=== PATIENT | female | born 1985 | race Caucasian/White ===

== ENCOUNTER 2017-07-25 16:54 | Emergency (ER) | payer OTHER ==
[2017-07-25] MEDS ORDERED: Sodium Chloride 0.9% 10 ML Syringe FLUSH PRN (17:10)
[2017-07-25] MEDS ORDERED: Sodium Chloride 0.9% 1,000 ML IV ONE (17:10)
[2017-07-25] MEDS ORDERED: Sodium Chloride 0.9% 2.5 ML Syringe FLUSH PRN (17:10)
[2017-07-25 17:47] LABS: CHLORIDE,CL 107 mmol/L (98-110); SODIUM,NA 136 mmol/L (136-146)
--- NOTE | 2017-07-25 18:19 | EDM.PDOC ---
Addendum entered and electronically signed by Irina Mobley MD 07/25/17 21: 19: Please also note that labor and delivery did come down and briefly evaluate the patient for heart tones and conditions and has cleared the patient. Original Note: <Irina Mobley - Last Filed: 07/25/17 21:10> ED HPI GENERAL MEDICAL PROBLEM - General Chief Complaint: Respiratory Problem Stated Complaint: SHORTNESS OF BREATH/ Time Seen by Provider: 07/25/17 16:57 - History of Present Illness INITIAL COMMENTS - FREE TEXT/NARRATIVE: This is Dr. Mobley dictating an addendum note as I assumed care of this case at 7 PM. Case was endorsed to me as above and vital signs were reviewed which revealed no sign of to The hypoxia or tachycardia. This is the patient's fourth . She states to me that she's been having the shortness of breath more acutely and she was concerned. Labs were reviewed which had been completed at the time of endorsement and the CTA was going to be performed. The test results are now back and there is no evidence of any pulmonary abnormality including PE. These results were discussed with the patient and at bedside. This case was also discussed at 2109 with the doctor mononitrotoluene operator for [facility], Dr. Vega; she will relay the information to Dr. Funez. I will advise the patient to continue to monitor symptoms and reasons to return to the ED and to keep follow-up and in close contact with her provider for any change or evolution of the symptoms. Impression: Dyspnea in third trimester etiology unclear stable - Related Data Allergies Allergy/AdvReac Type Severity Reaction Status Date / Time No Known Allergies Allergy Verified 07/25/17 17:04 Home Meds: Home Meds Vit No.130/Iron/FA [ Tablet] 1 tab PO DAILY 03/11/14 [History] ED ROS GENERAL - Review of Systems Review Of Systems: ROS reveals no pertinent complaints other than HPI. Course - Vital Signs Last Recorded V/S: Last Vital Signs Temp 98.9 F 07/25/17 21:40 Pulse 73 07/25/17 21:40 Resp 15 07/25/17 21:40 BP 115/69 07/25/17 21:40 Pulse Ox 15 L 07/25/17 21:40 - Orders/Labs/Meds Orders: Active Orders 24 hr Category Date Time Status CTA Chest W WO Contrast [Ang Chest] [CT] Stat Exams 07/25/17 17:35 Taken Saline Lock Insert [OM.PC] Stat Oth 07/25/17 17:09 Ordered Labs: Laboratory Tests 07/25/17 07/25/17 07/25/17 Range/Units 17:19 17:20 17:20 WBC 13.19 H (4.0-11.0) K/uL RBC 3.85 L (4.30-5.90) M/uL Hgb 11.6 L (12.0-16.0) g/dL Hct 35.6 L (36.0-46.0) % MCV 92.5 (80.0-98.0) fL MCH 30.1 (27.0-32.0) pg MCHC 32.6 (31.0-37.0) g/dL RDW Std Deviation 42.7 (28.0-62.0) fl RDW Coeff of Isaias 13 (11.0-15.0) % Plt Count 289 (150-400) K/uL MPV 11.60 (7.40-12.00) fL Add Manual Diff YES Neutrophils % (Manual) 53 (48.0-80.0) % Band Neutrophils % 6 % Lymphocytes % (Manual) 28 (16.0-40.0) % Monocytes % (Manual) 11 (0.0-15.0) % Eosinophils % (Manual) 2 (0.0-7.0) % Nucleated RBC % 0.0 /100WBC Absolute Seg Neuts 7.0 H (1.4-5.7) Band Neutrophils # 0.8 Lymphocytes # (Manual) 3.7 H (0.6-2.4) Monocytes # (Manual) 1.5 H (0.0-0.8) Eosinophils # (Manual) 0.3 (0.0-0.7) Nucleated RBCs # 0 K/uL Sodium 136 (136-146) mmol/L Potassium 3.7 (3.5-5.1) mmol/L Chloride 107 (98-110) mmol/L Carbon Dioxide 22 (21-31) mmol/L BUN 10 (6.0-23.0) mg/dL Creatinine 0.7 (0.6-1.5) mg/dL Est Cr Clr Drug Dosing TNP Estimated GFR (MDRD) > 60.0 ml/min Glucose 86 (60-110) mg/dL Calcium 9.2 (8.8-10.8) mg/dL Total Bilirubin 0.2 (0.1-1.5) mg/dL AST 13 (5-40) IU/L ALT 11 (8-54) IU/L Alkaline Phosphatase 85 (40-150) Total Protein 6.9 (6.0-8.0) g/dL Albumin 3.4 L (3.5-5.0) g/dL Globulin 3.5 (2.0-3.5) g/dL Albumin/Globulin Ratio 1.0 L (1.3-2.8) Urine Color YELLOW Urine Appearance CLEAR Urine pH 7.5 (5.0-8.0) Ur Specific [place] 1.015 (1.001-1.035) Urine Protein NEGATIVE (NEGATIVE) mg/dL Urine Glucose (UA) NEGATIVE (NEGATIVE) mg/dL Urine Ketones NEGATIVE (NEGATIVE) mg/dL Urine Occult Blood TRACE-LYSED (NEGATIVE) Urine Nitrite NEGATIVE (NEGATIVE) Urine Bilirubin NEGATIVE (NEGATIVE) Urine Urobilinogen 0.2 (<2.0) EU/dL Ur Leukocyte Esterase NEGATIVE (NEGATIVE) Urine RBC 0-1 (0-2/HPF) Urine WBC 0-2 (0-5/HPF) Ur Epithelial Cells MODERATE (NONE-FEW) Urine Bacteria FEW (NEGATIVE) Meds: Medications Discontinued Medications Generic Name Dose Route Start Last Admin Trade Name Freq PRN Reason Stop Dose Admin Sodium Chloride 1,000 mls @ 999 mls/hr 07/25/17 17:10 07/25/17 17:25 Normal Saline IV 07/25/17 18:10 999 mls/hr .Bolus ONE Administration Sodium Chloride 10 ml 07/25/17 17:10 Saline Flush FLUSH ASDIRECTED PRN Keep Vein Open Sodium Chloride 2.5 ml 07/25/17 17:10 Saline Flush FLUSH ASDIRECTED PRN Keep Vein Open Departure - Departure Time of Disposition: 21:18 Disposition: Home, Self-Care 01 Condition: Good Clinical Impression: Third trimester Dyspnea Qualifiers: Dyspnea type: unspecified Qualified Code(s): R06.00 - Dyspnea, unspecified - Discharge Information Instructions: Shortness of Breath, Evbi-lz-Ateg, Third Trimester of , [id number] Referrals: Adum,Diane, MD [Primary Care Provider] - Forms: ED Department Discharge Additional Instructions: The following information is given to patients seen in the emergency department who are being discharged to home. This information is to outline your options for follow-up care. We provide all patients seen in our emergency department with a follow-up referral. The need for follow-up, as well as the timing and circumstances, are variable depending upon the specifics of your emergency department visit. If you don't have a primary care physician on staff, we will provide you with a referral. We always advise you to contact your personal physician following an emergency department visit to inform them of the circumstance of the visit and for follow-up with them and/or the need for any referrals to a consulting specialist. The emergency department will also refer you to a specialist when appropriate. This referral assures that you have the opportunity for followup care with a specialist. All of these measure are taken in an effort to provide you with optimal care, which includes your followup. Under all circumstances we always encourage you to contact your private physician who remains a resource for coordinating your care. When calling for followup care, please make the office aware that this follow-up is from your recent emergency room visit. If for any reason you are refused follow-up, please contact the [facility] emergency department at and ask to speak to the emergency department charge nurse. [address] [id number] Please continue to monitor your symptoms and contact your provider at the clinic for follow-up. Please return to ER as needed and as discussed. - My Orders Last 24 Hours: My Active Orders 07/25/17 17:09 Saline Lock Insert [OM.PC] Stat 07/25/17 17:35 CTA Chest W WO Contrast [Ang Chest] [CT] Stat - Assessment/Plan Last 24 Hours: My Active Orders 07/25/17 17:09 Saline Lock Insert [OM.PC] Stat 07/25/17 17:35 CTA Chest W WO Contrast [Ang Chest] [CT] Stat <Shaneka Rodríguez - Last Filed: 07/26/17 07:04> ED HPI GENERAL MEDICAL PROBLEM - General Source of Information: Reports: Patient History Limitations: Reports: No Limitations - History of Present Illness INITIAL COMMENTS - FREE TEXT/NARRATIVE: History of present illness: []Patient is [address] Funez at [facility] complaining of a sudden onset of shortness of breath this afternoon while at rest. Patient has been feeling lack of energy and was diagnosed with a vitamin B deficiency and has received her first vitamin B shot but it has not helped. She has not had any recent illnesses she denies any chest pain, cough, fevers, chills, or cold symptoms. Patient also denies any leg pain or leg swelling. Patient states she feels the baby moving and is not have any abdominal pain, vaginal bleeding or discharge. Review of systems: As per history of present illness and below otherwise all systems reviewed and negative. Past medical history: As per history of present illness and as reviewed below otherwise noncontributory. Surgical history: As per history of present illness and as reviewed below otherwise noncontributory. Social history: No reported history of drug or alcohol abuse. Family history: As per history of present illness and as reviewed below otherwise noncontributory. Physical exam: General: Well developed, well nourished in NAD HEENT: Atraumatic, normocephalic, pupils reactive, negative for conjunctival pallor or scleral icterus, mucous membranes moist, throat clear, neck supple, nontender, trachea midline. No edema Lungs: Clear to auscultation, breath sounds equal bilaterally, no accessory muscle use, chest nontender. Heart: S1S2, regular, negative for clicks, rubs, or JVD. No peripheral edema Abdomen: Soft, consistent with several month OB abdomen. Negative for masses or hepatosplenomegaly. Negative for costovertebral tenderness. Pelvis: Stable nontender. Genitourinary: Deferred. Rectal: Deferred. Extremities: Atraumatic, negative for cords or calf pain. Neurovascular unremarkable. Neuro: Awake, alert, oriented. Cranial nerves II through XII unremarkable. Cerebellum unremarkable. Motor and sensory unremarkable throughout. Exam nonfocal. Diagnostics: []Labs and T and she'll to rule out a PE-results pending, Dr. Mobley Therapeutics: []IV hydrated Impression: []Shortness of breath Plan: []Disposition per Dr. Mobley Definitive disposition and diagnosis as appropriate pending reevaluation and review of above. 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: Musculoskeletal History: Reports: None Neurological History: Reports: None Psychiatric History: Reports: None Endocrine/Metabolic History: Reports: None Hematologic History: Reports: None Immunologic History: Reports: None Oncologic (Cancer) History: Reports: None Dermatologic History: Reports: None - Infectious Disease History Infectious Disease History: Reports: Chicken Pox - Past Surgical History Respiratory Surgical History: Reports: None GI Surgical History: Reports: None Female Surgical History: Reports: None Endocrine Surgical History: Reports: None Neurological Surgical History: Reports: None Musculoskeletal Surgical History: Reports: None Oncologic Surgical History: Reports: None Dermatological Surgical History: Reports: None Social & Family History - Family History Family Medical History: Noncontributory Cardiac: Reports: Hypertension OBGYN: Reports: Other (See Below) Other OBGYN Family History: ovarian cancer Oncologic: Reports: Breast, Ovarian - Tobacco Use Smoking Status *Q: Never Smoker Second Hand Smoke Exposure: No - Caffeine Use Caffeine Use: Reports: Coffee - Recreational Drug Use Recreational Drug Use: No ED ROS GENERAL - Review of Systems Review Of Systems: See Below (See history of present illness) ED EXAM, GENERAL - Physical Exam Exam: See Below (See history of present illness)
[2017-07-25 21:44] VITALS: BP 115/69
--- NOTE | 2017-07-26 13:07 | CT ---
EXAM DATE: 07/25/17 PATIENT'S AGE: 32 Patient: LUZMARIA RESENDEZ Facility: [place], [place] Site . Site : 1985 Study: CT Chest Angio [id number]/5/2017 8:13:48 PM Ordering Physician: Marcos Munroe Final Report: INDICATION: Sudden onset shortness of breath. TECHNIQUE: CT chest pulmonary PE protocol acquired with 50 cc Isovue 370 IV contrast. COMPARISON: None FINDINGS: Cardiovascular structures: Normal vascular enhancement of the pulmonary arteries , no sign of pulmonary embolism. Heart size is normal. No sign of aneurysm or dissection in the thoracic aorta. Mediastinum and susie: No mass or adenopathy. Lungs: Clear. Pleura and pericardium: No effusions. Chest wall and axilla: No mass or adenopathy. Upper abdomen: Unremarkable. Bones: No significant findings. IMPRESSION: Unremarkable chest CT. Specifically, no pulmonary embolism or pneumonia. Please note that all CT scans at this facility use dose modulation, iterative reconstruction, and/or weight-based dosing when appropriate to reduce radiation dose to as low as reasonably achievable. Dictated by Elizabeth Osborn MD @ Jul 25 2017 8:51PM (Electronic Signature) Report Signed by Proxy. DUSTIN
== END 2017-07-25 21:40 | disposition home or self-care (01) ==
LOC: MW.ED 16:54
DX: O99.89 Other specified diseases and conditions complicating pregnancy, childbirth and the puerperium (principal); R06.02 Shortness of breath
CPT/HCPCS: 36415; 71275; 80053; 81001; 85025; 96360; 99285; J7040

== ENCOUNTER 2017-09-21 07:07 | Emergency (ER) | payer OTHER | END 2017-09-21 07:30 | disposition left against medical advice (07) | LOC: MW.ED 07:07 | DX: Z53.21 Procedure and treatment not carried out due to patient leaving prior to being seen by health care provider (principal) ==

== ENCOUNTER 2017-09-21 07:14 | Inpatient (IN) | payer OTHER ==
[2017-09-21] MEDS ORDERED: Ondansetron 4 MG Tab.DIS PO PRN (07:48)
[2017-09-21] MEDS: Lactated Ringers 1,000 ML IV SCH ×3 (08:05→15:10)
[2017-09-21] MEDS ORDERED: Ondansetron 4 MG/2 ML SDV IVPUSH ONE (08:13)
[2017-09-21 09:01] LABS: CHLORIDE,CL 107 mmol/L (98-110); SODIUM,NA 137 mmol/L (136-146)
[2017-09-21] MEDS ORDERED: Misoprostol 200 MCG Tab PO PRN (14:22)
[2017-09-21] MEDS ORDERED: Butorphanol 1 MG/ML SDV IVPUSH PRN (14:22)
[2017-09-21] MEDS ORDERED: Sodium Chloride 0.9% 10 ML Syringe FLUSH PRN (14:22)
[2017-09-21] MEDS ORDERED: Nalbuphine 10 MG/1 ML Vial IVPUSH PRN (14:22)
[2017-09-21] MEDS ORDERED: Methylergonovine 0.2 MG/1 ML Amp IM PRN (14:22)
[2017-09-21] MEDS ORDERED: Carboprost Tromethamine 250 MCG/1 ML Amp IM PRN (14:22)
[2017-09-21] MEDS ORDERED: Lidocaine 1% 50 ML MDV INJECT PRN (14:22)
[2017-09-21] MEDS ORDERED: Sodium Chloride 0.9% 2.5 ML Syringe FLUSH PRN (14:22)
[2017-09-21] MEDS ORDERED: Water For Irrigation,Sterile 1,000 ML Container IRR PRN (14:22)
[2017-09-21] MEDS ORDERED: Oxytocin/0.9 % Sodium Chloride 30 UNIT/500 ML BAG IV SCH (14:30)
[2017-09-21] MEDS ORDERED: Lactated Ringers 1,000 ML IV SCH (14:30)
[2017-09-21] MEDS ORDERED: fentaNYL 100 MCG/2 ML SDV ONE (14:52)
[2017-09-21] MEDS ORDERED: Ropivacaine 0.2% 2 MG/ML 20 ML SDV ONE (14:53)
--- NOTE | 2017-09-21 15:18 | PCM.PREANE ---
Preanesthetic Assessment - Anesthesia/Transfusion/Family Hx Anesthesia History: Prior Anesthesia Without Reaction Family History of Anesthesia Reaction: No Transfusion History: No Prior Transfusion(s) - Review of Systems Other: Reports: None - Physical Assessment Height: 5 ft 3 in Weight: 72.575 kg ASA Class: 2 Mental Status: Alert & Oriented x3 Airway Class: Mallampati = 1 Dentition: Reports: Normal Dentition ROM/Head Extension: Full - Lab Values: Laboratory Last Values WBC 12.54 K/uL (4.0-11.0) H 09/21/17 08:15 RBC 4.33 M/uL (4.30-5.90) 09/21/17 08:15 Hgb 12.1 g/dL (12.0-16.0) 09/21/17 08:15 Hct 38.7 % (36.0-46.0) 09/21/17 08:15 MCV 89.4 fL (80.0-98.0) 09/21/17 08:15 MCH 27.9 pg (27.0-32.0) 09/21/17 08:15 MCHC 31.3 g/dL (31.0-37.0) 09/21/17 08:15 RDW Std Deviation 46.4 fl (28.0-62.0) 09/21/17 08:15 RDW Coeff of Isaias 14 % (11.0-15.0) 09/21/17 08:15 Plt Count 209 K/uL (150-400) 09/21/17 08:15 MPV 12.80 fL (7.40-12.00) H 09/21/17 08:15 Nucleated RBC % 0.0 /100WBC 09/21/17 08:15 Nucleated RBCs # 0 K/uL 09/21/17 08:15 Sodium 137 mmol/L (136-146) 09/21/17 08:15 Potassium 4.1 mmol/L (3.5-5.1) 09/21/17 08:15 Chloride 107 mmol/L (98-110) 09/21/17 08:15 Carbon Dioxide 18 mmol/L (21-31) L 09/21/17 08:15 BUN 14 mg/dL (6.0-23.0) 09/21/17 08:15 Creatinine 0.7 mg/dL (0.6-1.5) 09/21/17 08:15 Est Cr Clr Drug Dosing 94.56 mL/min 09/21/17 08:15 Estimated GFR (MDRD) > 60.0 ml/min 09/21/17 08:15 Glucose 92 mg/dL (60-110) 09/21/17 08:15 Calcium 8.9 mg/dL (8.8-10.8) 09/21/17 08:15 Total Bilirubin 0.4 mg/dL (0.1-1.5) 09/21/17 08:15 AST 16 IU/L (5-40) 09/21/17 08:15 ALT 12 IU/L (8-54) 09/21/17 08:15 Alkaline Phosphatase 192 (40-150) H 09/21/17 08:15 Total Protein 6.9 g/dL (6.0-8.0) 09/21/17 08:15 Albumin 3.5 g/dL (3.5-5.0) 09/21/17 08:15 Globulin 3.4 g/dL (2.0-3.5) 09/21/17 08:15 Albumin/Globulin Ratio 1.0 (1.3-2.8) L 09/21/17 08:15 Urine Color YELLOW 09/21/17 10:05 Urine Appearance CLEAR 09/21/17 10:05 Urine pH 6.0 (5.0-8.0) 09/21/17 10:05 Ur Specific [place] 1.025 (1.001-1.035) 09/21/17 10:05 Urine Protein TRACE mg/dL (NEGATIVE) 09/21/17 10:05 Urine Glucose (UA) NEGATIVE mg/dL (NEGATIVE) 09/21/17 10:05 Urine Ketones 40 mg/dL (NEGATIVE) H 09/21/17 10:05 Urine Occult Blood TRACE-LYSED (NEGATIVE) 09/21/17 10:05 Urine Nitrite NEGATIVE (NEGATIVE) 09/21/17 10:05 Urine Bilirubin NEGATIVE (NEGATIVE) 09/21/17 10:05 Urine Urobilinogen 0.2 EU/dL (<2.0) 09/21/17 10:05 Ur Leukocyte Esterase NEGATIVE (NEGATIVE) 09/21/17 10:05 - Allergies Allergies/Adverse Reactions: Allergies Allergy/AdvReac Type Severity Reaction Status Date / Time No Known Allergies Allergy Verified 07/25/17 17:04 - Blood Blood Available: Yes Product(s) Available: PRBC - Acknowledgements Anesthesia Type Planned: Epidural Pt an Appropriate Candidate for the Planned Anesthesia: Yes Alternatives and Risks of Anesthesia Discussed w Pt/Guardian: Yes Pt/Guardian Understands and Agrees with Anesthesia Plan: Yes PreAnesthesia Questionnaire Respiratory History: Reports: None Gastrointestinal History: Reports: None Genitourinary History: Reports: None 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: Musculoskeletal History: Reports: None Neurological History: Reports: None Psychiatric History: Reports: None Endocrine/Metabolic History: Reports: None Hematologic History: Reports: None Immunologic History: Reports: None Oncologic (Cancer) History: Reports: None Dermatologic History: Reports: None - Infectious Disease History Infectious Disease History: Reports: Chicken Pox - Past Surgical History Respiratory Surgical History: Reports: None GI Surgical History: Reports: None Female Surgical History: Reports: None Endocrine Surgical History: Reports: None Neurological Surgical History: Reports: None Musculoskeletal Surgical History: Reports: None Oncologic Surgical History: Reports: None Dermatological Surgical History: Reports: None - SUBSTANCE USE Smoking Status *Q: Never Smoker Tobacco Use Within Last Twelve Months: No Second Hand Smoke Exposure: No Recreational Drug Use History: No - HOME MEDS Home Medications: Home Meds Vit No.130/Iron/FA [ Tablet] 1 tab PO DAILY 03/11/14 [History] - CURRENT (IN HOUSE) MEDS Current Meds: Current Medications Butorphanol Tartrate (Stadol) 1 mg IVPUSH ASDIRECTED PRN PRN Reason: Pain Carboprost Tromethamine (Hemabate Ds) 250 mcg IM ASDIRECTED PRN PRN Reason: Post Hemorrhage Lactated Ringer's (Ringers, Lactated) 1,000 mls @ 150 mls/hr IV .BOLUS AURELIANO Stop: 09/22/17 08:01 Last Admin: 09/21/17 15:10 Dose: 500 mls/hr Lactated Ringer's (Ringers, Lactated) 1,000 mls @ 150 mls/hr IV ASDIRECTED AURELIANO Oxytocin/Sodium Chloride (Oxytocin 30 Unit/500 Ml-Ns) 30 unit in 500 mls @ 999 mls/hr IV TITRATE AURELIANO Lidocaine HCl (Xylocaine 1%) 50 ml INJECT .ONCE PRN PRN Reason: Laceration repair Methylergonovine Maleate (Methergine) 0.2 mg IM ASDIRECTED PRN PRN Reason: Post Hemorrhage Misoprostol (Cytotec) 200 mcg PO .ONCE PRN PRN Reason: Post Hemorrhage Nalbuphine HCl (Nubain) 10 mg IVPUSH ASDIRECTED PRN PRN Reason: Pain (severe 7-10) Sodium Chloride (Saline Flush) 10 ml FLUSH ASDIRECTED PRN PRN Reason: Keep Vein Open Sodium Chloride (Saline Flush) 2.5 ml FLUSH ASDIRECTED PRN PRN Reason: Keep Vein Open Sterile Water (Sterile Water For Irrigation) 1,000 ml IRR ASDIRECTED PRN PRN Reason: delivery Discontinued Medications Fentanyl (Sublimaze) Confirm Administered Dose 400 mcg .ROUTE .STK-MED ONE Stop: 09/21/17 14:53 Ondansetron HCl (Zofran) 4 mg IVPUSH ONETIME ONE Stop: 09/21/17 08:14 Last Admin: 09/21/17 08:25 Dose: 4 mg Ropivacaine (Naropin 0.2%) Confirm Administered Dose 20 ml .ROUTE .STK-MED ONE Stop: 09/21/17 14:54
[2017-09-21] MEDS ORDERED: Bisacodyl 10 MG Supp RECTAL PRN (16:04)
[2017-09-21] MEDS ORDERED: Lanolin 100% Cream 7 GM Tube TOP PRN (16:04)
[2017-09-21] MEDS ORDERED: Witch Hazel Medicated Pads 40/Jar TOP PRN (16:04)
[2017-09-21] MEDS ORDERED: Ibuprofen 400 MG Tab PO PRN (16:04)
[2017-09-21] MEDS ORDERED: Acetaminophen 500 MG Tab PO PRN ×2 (16:04)
[2017-09-21] MEDS ORDERED: oxyCODONE 5 MG Tab PO PRN (16:04)
[2017-09-21] MEDS ORDERED: Docusate Sodium 100 MG Cap PO PRN (16:04)
[2017-09-21] MEDS ORDERED: Benzocaine/Menthol 20%-0.5% Spray 78 GM Cannister TOP PRN (16:04)
--- NOTE | 2017-09-21 22:11 | OR ---
SURGEON: Diane Funez MD DATE OF PROCEDURE: 09/21/2017 PREOPERATIVE DIAGNOSES: 1. Intrauterine at 39 weeks and 2 days. 2. Spontaneous labor. POSTOPERATIVE DIAGNOSES: 1. Intrauterine at 39 weeks and 2 days. 2. Spontaneous labor. 3. Delivered. PROCEDURES: 1. Spontaneous vaginal delivery. 2. Repair of perineal laceration. ANESTHESIA: Epidural. ESTIMATED BLOOD LOSS: 200 mL. COMPLICATIONS: None. DISPOSITION: Mother and baby stable in Labor and Delivery room, bonding. FINDINGS: Female , weight pending, Apgars 9 and 9 at one and five minutes respectively. Grossly normal placenta with 3-vessel cord. Second degree perineal laceration. BRIEF HISTORY: Diane is a 32-year-old, G4, P3, who was admitted at 39 weeks and 2 days at the early hours of this morning with body aches, nausea, and vomiting- reported that she had vomited over 15 times since the previous night. She also reported that her kid has had fever over the last 24 hours and seemed to be coming down with flu-like symptoms. She was evaluated and ruled out for influenza infection. She was hydrated and her nausea with vomiting resolved with a dose of Zofran. She was initially rosio very irregularly on admission and did not report feeling those contractions, but while she was on admission, she started complaining of increase in intensity of her contractions, she was examined and initially was found to be 3 cm dilated, but then continued to make cervical change. She progressed spontaneously to 6 cm and was asked for epidural. At that stage, artificial rupture of membranes was performed with clear amniotic fluid noted and she received epidural for pain management. Within an hour of artificial rupture of membranes, she became fully dilated and commenced active pushing. Her care was otherwise uncomplicated. GBS status was negative. She continued to have a category 1 tracing. She pushed well and over the next 3 contractions, she brought the baby's head down to a +4 station and was set up for delivery in modified dorsal lithotomy position. DESCRIPTION OF PROCEDURE: She had a spontaneous vaginal delivery of a live female in left occipital posterior position, no nuchal cords noted, clear amniotic fluid at delivery. Anterior and posterior shoulders and the rest of the baby was delivered without difficulty. The baby was vigorous and cried spontaneously at . The baby was then delivered onto the maternal abdomen with the nursery nurse attending to her. Delayed cord clamping was performed. The cord was subsequently cut by the father of the baby. With delivery of the infant, oxytocin was commenced for active management of third stage of labor. Cord blood and gas samples were obtained. The placenta was delivered by controlled cord traction, appeared to be complete and intact. Examination of the perineum revealed a midline second- degree perineal laceration. This was repaired with 2-0 Vicryl suture in the routine fashion in 3 layers with subcuticular stitches used to appose the skin. Uterine massage was performed. The uterus was found to be well contracted below the umbilicus. The patient tolerated the procedure well. Sponge, instrument, and needle counts were correct at the end of the delivery. ADUMVIV / LIZETHL /[id number] MTDD
[2017-09-21] MEDS: Ibuprofen 800 MG Tab PO PRN (23:09)
--- NOTE | 2017-09-22 08:58 | PCM.PNPP ---
- General Info Date of Service: 09/22/17 Functional Status: Reports: Pain Controlled, Tolerating Diet, Ambulating, Urinating - Review of Systems General: Denies: Fever, Weakness, Fatigue, Malaise, Chills HEENT: Denies: Headaches Pulmonary: Denies: Shortness of Breath, Pleuritic Chest Pain, Cough Cardiovascular: Denies: Chest Pain, Palpitations, Dyspnea on Exertion Gastrointestinal: Denies: Abdominal Pain Genitourinary: Denies: Dysuria, Incontinence, Retention Psychiatric: Denies: Confusion, Depression, Mood Lability, Anxiety - General Info Date of Service: 09/22/17 - Patient Data Vital Signs - Most Recent: Last Vital Signs Temp 36.7 C 09/22/17 04:00 Pulse 67 09/22/17 04:00 Resp 15 09/22/17 04:00 BP 99/57 L 09/22/17 04:00 Pulse Ox 97 09/22/17 04:00 Weight - Most Recent: 160 lb Lab Results - Last 24 Hours: Laboratory Results - last 24 hr 09/21/17 09/21/17 09/21/17 Range/Units 08:15 10:05 14:41 Hgb (12.0-16.0) g/dL Hct (36.0-46.0) % Cord ABG pH (7.18-7.38) Cord ABG Base Excess (-10--2) Cord VBG pH (7.25-7.45) Cord VBG Base Excess (-10--2) Sodium 137 (136-146) mmol/L Potassium 4.1 (3.5-5.1) mmol/L Chloride 107 (98-110) mmol/L Carbon Dioxide 18 L (21-31) mmol/L BUN 14 (6.0-23.0) mg/dL Creatinine 0.7 (0.6-1.5) mg/dL Est Cr Clr Drug Dosing 94.56 mL/min Estimated GFR (MDRD) > 60.0 ml/min Glucose 92 (60-110) mg/dL Calcium 8.9 (8.8-10.8) mg/dL Total Bilirubin 0.4 (0.1-1.5) mg/dL AST 16 (5-40) IU/L ALT 12 (8-54) IU/L Alkaline Phosphatase 192 H (40-150) Total Protein 6.9 (6.0-8.0) g/dL Albumin 3.5 (3.5-5.0) g/dL Globulin 3.4 (2.0-3.5) g/dL Albumin/Globulin Ratio 1.0 L (1.3-2.8) Urine Color YELLOW Urine Appearance CLEAR Urine pH 6.0 (5.0-8.0) Ur Specific Salyer 1.025 (1.001-1.035) Urine Protein TRACE (NEGATIVE) mg/dL Urine Glucose (UA) NEGATIVE (NEGATIVE) mg/dL Urine Ketones 40 H (NEGATIVE) mg/dL Urine Occult Blood TRACE-LYSED (NEGATIVE) Urine Nitrite NEGATIVE (NEGATIVE) Urine Bilirubin NEGATIVE (NEGATIVE) Urine Urobilinogen 0.2 (<2.0) EU/dL Ur Leukocyte Esterase NEGATIVE (NEGATIVE) Blood Type AB POSITIVE Antibody Screen NEGATIVE 09/21/17 09/22/17 Range/Units 15:42 05:03 Hgb 8.7 L (12.0-16.0) g/dL Hct 28.1 L (36.0-46.0) % Cord ABG pH 7.223 (7.18-7.38) Cord ABG Base Excess -7 (-10--2) Cord VBG pH 7.272 (7.25-7.45) Cord VBG Base Excess -7 (-10--2) Sodium (136-146) mmol/L Potassium (3.5-5.1) mmol/L Chloride (98-110) mmol/L Carbon Dioxide (21-31) mmol/L BUN (6.0-23.0) mg/dL Creatinine (0.6-1.5) mg/dL Est Cr Clr Drug Dosing mL/min Estimated GFR (MDRD) ml/min Glucose (60-110) mg/dL Calcium (8.8-10.8) mg/dL Total Bilirubin (0.1-1.5) mg/dL AST (5-40) IU/L ALT (8-54) IU/L Alkaline Phosphatase (40-150) Total Protein (6.0-8.0) g/dL Albumin (3.5-5.0) g/dL Globulin (2.0-3.5) g/dL Albumin/Globulin Ratio (1.3-2.8) Urine Color Urine Appearance Urine pH (5.0-8.0) Ur Specific Salyer (1.001-1.035) Urine Protein (NEGATIVE) mg/dL Urine Glucose (UA) (NEGATIVE) mg/dL Urine Ketones (NEGATIVE) mg/dL Urine Occult Blood (NEGATIVE) Urine Nitrite (NEGATIVE) Urine Bilirubin (NEGATIVE) Urine Urobilinogen (<2.0) EU/dL Ur Leukocyte Esterase (NEGATIVE) Blood Type Antibody Screen Micro Results - Last 24 Hours: Microbiology 09/21/17 07:45 Influenza Type A Antigen Screen - Final Nasopharyngeal Swab NEGATIVE INFLUENZA A VIRUS AG Influenza Type B Antigen Screen - Final NEGATIVE INFLUENZA B VIRUS AG Med Orders - Current: Current Medications Acetaminophen (Tylenol Extra Strength) 500 mg PO Q4H PRN PRN Reason: Pain Acetaminophen (Tylenol Extra Strength) 1,000 mg PO Q4H PRN PRN Reason: Pain Last Admin: 09/22/17 03:02 Dose: 1,000 mg Benzocaine/Menthol (Dermoplast Pain Relief 20%-0.5% Ethel) 78 gm TOP ASDIRECTED PRN PRN Reason: Perineal Comfort Measure Last Admin: 09/21/17 18:21 Dose: 78 gram Bisacodyl (Dulcolax) 10 mg RECTAL .ONCE PRN PRN Reason: Constipation Docusate Sodium (Colace) 100 mg PO BID PRN PRN Reason: Constipation Emollient Ointment (Lansinoh Hpa) 0 gm TOP ASDIRECTED PRN PRN Reason: Sore Nipples Ibuprofen (Motrin) 400 mg PO Q4H PRN PRN Reason: Pain Ibuprofen (Motrin) 800 mg PO Q6H PRN PRN Reason: Pain Last Admin: 09/21/17 23:09 Dose: 800 mg Oxycodone HCl (Oxycodone) 5 mg PO Q2H PRN PRN Reason: Pain Witch Marina (Tucks) 1 pad TOP ASDIRECTED PRN PRN Reason: comfort care Last Admin: 09/21/17 18:20 Dose: 1 pad Discontinued Medications Butorphanol Tartrate (Stadol) 1 mg IVPUSH ASDIRECTED PRN PRN Reason: Pain Carboprost Tromethamine (Hemabate Ds) 250 mcg IM ASDIRECTED PRN PRN Reason: Post Hemorrhage Fentanyl (Sublimaze) Confirm Administered Dose 400 mcg .ROUTE .STK-MED ONE Stop: 09/21/17 14:53 Last Admin: 09/22/17 04:44 Dose: Not Given Lactated Ringer's (Ringers, Lactated) 1,000 mls @ 150 mls/hr IV .BOLUS [facility] Stop: 09/22/17 08:01 Last Admin: 09/21/17 15:10 Dose: 500 mls/hr Lactated Ringer's (Ringers, Lactated) 1,000 mls @ 150 mls/hr IV ASDIRECTED [facility] Oxytocin/Sodium Chloride (Oxytocin 30 Unit/500 Ml-Ns) 30 unit in 500 mls @ 999 mls/hr IV TITRATE [facility] Lidocaine HCl (Xylocaine 1%) 50 ml INJECT .ONCE PRN PRN Reason: Laceration repair Methylergonovine Maleate (Methergine) 0.2 mg IM ASDIRECTED PRN PRN Reason: Post Hemorrhage Misoprostol (Cytotec) 200 mcg PO .ONCE PRN PRN Reason: Post Hemorrhage Nalbuphine HCl (Nubain) 10 mg IVPUSH ASDIRECTED PRN PRN Reason: Pain (severe 7-10) Ondansetron HCl (Zofran) 4 mg IVPUSH ONETIME ONE Stop: 09/21/17 08:14 Last Admin: 09/21/17 08:25 Dose: 4 mg Ropivacaine (Naropin 0.2%) Confirm Administered Dose 20 ml .ROUTE .K-MED ONE Stop: 09/21/17 14:54 Last Admin: 09/22/17 04:45 Dose: Not Given Sodium Chloride (Saline Flush) 10 ml FLUSH ASDIRECTED PRN PRN Reason: Keep Vein Open Sodium Chloride (Saline Flush) 2.5 ml FLUSH ASDIRECTED PRN PRN Reason: Keep Vein Open Sterile Water (Sterile Water For Irrigation) 1,000 ml IRR ASDIRECTED PRN PRN Reason: delivery - Interaction Disposition, : in Room with Family Infant Feeding: Bottle Fed Support Person: - Recovery Exam Fundal Tone: Firm Fundal Level: 1 Fingerbreadths Below Umbilicus Fundal Placement: Midline Lochia Amount: Scant Lochia Color: Rubra/Red Perineum Description: Other (see below) Other Perinuem Description: 2nd degree laceration, repaired Episiotomy/Laceration: Approximated Bladder Status: Voiding Urinary Elimination: Voided - Exam General: Alert, Oriented Neck: Supple Lungs: Clear to Auscultation, Normal Respiratory Effort Cardiovascular: Regular Rate, Regular Rhythm GI/Abdominal Exam: Normal Bowel Sounds Extremities: Non-Tender, No Pedal Edema Skin: Warm Psy/Mental Status: Alert, Normal Affect, Normal Mood - Problem List & Annotations (1) Vaginal delivery SNOMED Code(s): 095550449 Code(s): O80 - ENCOUNTER FOR FULL-TERM UNCOMPLICATED DELIVERY Status: Acute Current Visit: Yes (2) Anemia SNOMED Code(s): 461989454 Code(s): D64.9 - ANEMIA, UNSPECIFIED Status: Acute Current Visit: Yes Qualifiers: Anemia type: other cause Other causes of anemia: other cause, not classified Qualified Code(s): D64.89 - Other specified anemias - Problem List Review Problem List Initiated/Reviewed/Updated: Yes - My Orders Last 24 Hours: My Active Orders 09/21/17 14:22 Heart Tones [RC] CONTINUOUS Non Stress Test [RC] PER UNIT ROUTINE May Shower [RC] ASDIRECTED Notify Provider [RC] PRN Up ad Ciara [RC] ASDIRECTED Vaginal Exam [RC] PRN Vital Signs [RC] PER UNIT ROUTINE 09/21/17 16:04 Patient Status [ADT] Routine May Shower [RC] ASDIRECTED Up ad Ciara [RC] ASDIRECTED Vital Signs [RC] PER UNIT ROUTINE Acetaminophen [Tylenol Extra Strength] 1,000 mg PO Q4H PRN Acetaminophen [Tylenol Extra Strength] 500 mg PO Q4H PRN Benzocaine/Menthol [Dermoplast Pain Relief 20%-0.5% Ethel] 78 gm TOP ASDIRECTED PRN Bisacodyl [Dulcolax] 10 mg RECTAL .ONCE PRN Docusate Sodium [Colace] 100 mg PO BID PRN Ibuprofen [Motrin] 400 mg PO Q4H PRN Ibuprofen [Motrin] 800 mg PO Q6H PRN Lanolin [Lansinoh HPA] See Dose Instructions TOP ASDIRECTED PRN Witch Marina [Tucks] 1 pad TOP ASDIRECTED PRN oxyCODONE 5 mg PO Q2H PRN Assess Lochia [WOMSER] Per Unit Routine Assess Uterine Involution [WOMSER] Per Unit Routine Peripheral IV Discontinue [OM.PC] Routine Resuscitation Status Routine 09/21/17 Dinner Regular Diet [DIET] - Assessment Assessment:: PPD#1, s/p , stable and afebrile - Plan Plan:: Discharge instructions reviewed Nothing in the vagina for 6 weeks Bleeding and infection precautions reviewed Continue PNV and start Iron supplements twice daily for 4 weeks blues/depression symptoms/signs reviewed Follow up in 6 weeks
[2017-09-22] MEDS: Ibuprofen 800 MG Tab PO PRN (13:04)
[2017-09-22 18:42] VITALS: BP 125/72
== END 2017-09-22 18:00 | disposition home or self-care (01) | DRG 775 ==
LOC: MW.OBCHECK 07:14 → MW.OB 07:16 → MW.OBCHECK 07:48 → MW.OB 07:48 → OBSVTOIN 16:04 → MW.OB 23:00
PROVIDERS: ADMIT Obstetrics & Gynecology; ATTEND Obstetrics & Gynecology
PROC: 10E0XZZ Delivery of Products of Conception, External Approach (ICD-10-PCS; principal; 2017-09-21)
PROC: 10907ZC Drainage of Amniotic Fluid, Therapeutic from Products of Conception, Via Natural or Artificial Opening (ICD-10-PCS; 2017-09-21)
DX: O70.1 Second degree perineal laceration during delivery (principal); O21.8 Other vomiting complicating pregnancy; Z3A.39 39 weeks gestation of pregnancy; Z37.0 Single live birth
CPT/HCPCS: 01967; 36415; 51702; 59025; 59409; 80053; 81003; 82803; 85014; 85018; 85027; 86850; 86900; 86901; 87804; A9270-GY; J2405; J2795; J3010; J7120